=== PATIENT | male | born 1960 ===

== ENCOUNTER 2020-06-15 10:36 | Emergency (ER) | payer OTHER ==
[~2020-06-15] VITALS: Ht 167.6 cm; Wt 63.5 kg
[2020-06-15] MEDS ORDERED: VASOTEC5 MG (10:47)
[2020-06-15] MEDS ORDERED: LEVOTHYROXINE25 MCG (10:47)
[2020-06-15] MEDS ORDERED: VISTARIL50 MG PO (13:49)
[2020-06-15] MEDS ORDERED: VASOTEC10 MG PO (13:49)
== END 2020-06-15 14:06 | disposition home or self-care (01) ==
LOC: ER 10:36 → CPU-OBS 11:11 → ER 11:11
DX: I16.0 Hypertensive urgency (principal); I10 Essential (primary) hypertension
CPT/HCPCS: G0378; G0379; 93005

== ENCOUNTER → 2020-06-21 | Emergency (ER) | payer OTHER ==
[~2020-06-21] VITALS: Ht 167.6 cm; Wt 63.5 kg
[~2020-06-21] MED LIST: LEVOTHYROXINE25 MCG; VASOTEC10 MG PO; VASOTEC5 MG; VISTARIL50 MG PO
== END ==
LOC: ER 10:35
DX: I10 Essential (primary) hypertension (principal)

== ENCOUNTER 2022-02-06 12:41 | Emergency (ER) | payer OTHER ==
[~2022-02-06] VITALS: Ht 167.6 cm; Wt 63.5 kg
[2022-02-06] MEDS ORDERED: SYNTHROID75 MCG PO (13:23)
[2022-02-06] MEDS ORDERED: COZAAR25 MG PO (13:24)
[2022-02-06] MEDS ORDERED: TOPROL XL25 M1 PO (13:25)
== END 2022-02-06 17:37 | disposition home or self-care (01) ==
LOC: ER 12:41
DX: N23 Unspecified renal colic (principal); I10 Essential (primary) hypertension; Z20.822 Contact with and (suspected) exposure to COVID-19